=== PATIENT | female | born 1995 | race Caucasian/White ===

== ENCOUNTER 2017-11-29 16:02 | Outpatient (CLI) | payer OTHER, MEDICAID ==
[~2017-11-29 16:02] MED LIST: TEST200V10
[2017-11-29 16:54] LABS: BASOPHILS % (AUTO) 0.3 % (0-1); EOSINOPHILS # (AUTO) 0.2 X10'3 (0-0.9); EOSINOPHILS % (AUTO) 3.5 % (0-6); HEMATOCRIT 43.8 % (35.0-45.0); LYMPHOCYTES # (AUTO) 1.6 X10'3 (1.1-4.8); LYMPHOCYTES % (AUTO) 28.5 % (21-51); MEAN CORPUSCULAR HEMOGLOBIN 31.1 PG (27.0-31.0); MEAN CORPUSCULAR HGB CONC 34.3 % (33.0-36.5); MEAN CORPUSCULAR VOLUME 90.7 FL (78-98); MEAN PLATELET VOLUME 7.6 FL (7.4-10.4); MONOCYTES # (AUTO) 0.7 X10'3 (0-0.9); MONOCYTES % (AUTO) 12.5 % (2-12); NEUTROPHILS # (AUTO) 3.1 X10'3 (1.8-7.7); NEUTROPHILS % (AUTO) 55.2 % (42-75); PLATELET COUNT 262 X10'3 (140-440); RED BLOOD COUNT 4.83 X10'6 (4.20-5.60); RED CELL DISTRIBUTION WIDTH 13.4 % (11.5-14.5); WHITE BLOOD COUNT 5.6 X10'3 (4.5-11.0)
[2017-12-01 09:24] LABS: ESTRADIOL 72.5 pg/mL (.)
== END 2017-11-29 23:59 | disposition home or self-care (01) ==
LOC: LAB 16:02
PROVIDERS: ATTEND Internal Medicine
DX: F64.9 Gender identity disorder, unspecified (principal)
CPT/HCPCS: 36415; 82670; 84402; 84403; 85025

== ENCOUNTER 2018-06-13 11:55 | Outpatient (CLI) | payer OTHER, MEDICAID ==
[2018-06-13 12:48] LABS: BASOPHILS % (AUTO) 0.3 % (0-1); EOSINOPHILS # (AUTO) 0.1 X10'3 (0-0.9); EOSINOPHILS % (AUTO) 0.8 % (0-6); HEMATOCRIT 41.3 % (35.0-45.0); HEMOGLOBIN 14.7 g/dl (12.0-16.0); LYMPHOCYTES # (AUTO) 1.9 X10'3 (1.1-4.8); LYMPHOCYTES % (AUTO) 29.2 % (21-51); MEAN CORPUSCULAR HEMOGLOBIN 31.7 PG (27.0-31.0); MEAN CORPUSCULAR HGB CONC 35.7 % (33.0-36.5); MEAN PLATELET VOLUME 7.9 FL (7.4-10.4); MONOCYTES # (AUTO) 0.6 X10'3 (0-0.9); MONOCYTES % (AUTO) 9.4 % (2-12); NEUTROPHILS # (AUTO) 3.9 X10'3 (1.8-7.7); NEUTROPHILS % (AUTO) 60.3 % (42-75); PLATELET COUNT 308 X10'3 (140-440); RED BLOOD COUNT 4.65 X10'6 (4.20-5.60); RED CELL DISTRIBUTION WIDTH 11.3 % (11.5-14.5); WHITE BLOOD COUNT 6.5 X10'3 (4.5-11.0)
[2018-06-14 08:17] LABS: ESTRADIOL 15.7 pg/mL (.)
[2018-06-15 13:43] LABS: TESTOSTERONE, FREE, DIRECT 4.7 pg/mL (0.0-4.2)
== END 2018-06-13 23:59 | disposition home or self-care (01) ==
LOC: LAB 11:55
PROVIDERS: ATTEND Internal Medicine
DX: F64.9 Gender identity disorder, unspecified (principal); F17.200 Nicotine dependence, unspecified, uncomplicated
CPT/HCPCS: 36415; 82670; 84402; 84403; 85025

== ENCOUNTER 2018-08-08 09:59 | Outpatient (CLI) | payer OTHER, MEDICAID ==
[2018-08-08 10:32] LABS: BASOPHILS % (AUTO) 0.3 % (0-1); EOSINOPHILS # (AUTO) 0.1 X10'3 (0-0.9); EOSINOPHILS % (AUTO) 1.6 % (0-6); HEMATOCRIT 43.4 % (35.0-45.0); HEMOGLOBIN 14.8 g/dl (12.0-16.0); LYMPHOCYTES # (AUTO) 1.5 X10'3 (1.1-4.8); LYMPHOCYTES % (AUTO) 27.9 % (21-51); MEAN CORPUSCULAR HEMOGLOBIN 30.4 PG (27.0-31.0); MEAN CORPUSCULAR HGB CONC 34.1 % (33.0-36.5); MEAN CORPUSCULAR VOLUME 89.3 FL (78-98); MEAN PLATELET VOLUME 7.7 FL (7.4-10.4); MONOCYTES # (AUTO) 0.5 X10'3 (0-0.9); MONOCYTES % (AUTO) 9.2 % (2-12); NEUTROPHILS # (AUTO) 3.2 X10'3 (1.8-7.7); PLATELET COUNT 276 X10'3 (140-440); RED BLOOD COUNT 4.86 X10'6 (4.20-5.60); RED CELL DISTRIBUTION WIDTH 12.4 % (11.5-14.5); WHITE BLOOD COUNT 5.3 X10'3 (4.5-11.0)
[2018-08-08 11:06] LABS: ALANINE AMINOTRANSFERASE 37 U/L (12-78); ALBUMIN 4.1 G/DL (3.4-5.0); ALBUMIN/GLOBULIN RATIO 1.3 (1.1-1.5); ALKALINE PHOSPHATASE 102 IU/L (46-116); ANION GAP 8 (8-16); ASPARTATE AMINO TRANSFERASE 30 U/L (10-37); BILIRUBIN,TOTAL 0.5 MG/DL (0.1-1.0); BLOOD UREA NITROGEN 7 MG/DL (7-18); BUN/CREATININE RATIO 6.5 (6.6-38.0); CALCIUM 9.5 MG/DL (8.5-10.1); CHLORIDE 101 MMOL/L (99-107); CHOL/HDL RATIO 3.5 (0.00-4.99); CHOLESTEROL 159 MG/DL (0-200); CREATININE 1.08 MG/DL (0.40-0.90); GLUCOSE 94 MG/DL (70-104); HDL CHOLESTEROL 46 MG/DL (35-60); LDL CHOLESTEROL 102 MG/DL (50-100); POTASSIUM 4.4 MMOL/L (3.5-5.1); SODIUM 139 MMOL/L (135-145); TOTAL CARBON DIOXIDE 30.5 MMOL/L (24-32); TOTAL PROTEIN 7.2 G/DL (6.4-8.2); TRIGLYCERIDES 72 MG/DL (20-135); eGFR 63 ML/MIN
[2018-08-08 11:19] LABS: FERRITIN 48 NG/ML (8-252)
[2018-08-09 06:17] LABS: VITAMIN D, 25-HYDROXY 20.9 ng/mL (30.0-100.0)
[2018-08-09 09:30] LABS: THIIODOTHRONINE, FREE, SERUM 5.1 pg/mL (2.0-4.4)
== END 2018-08-08 23:59 | disposition home or self-care (01) ==
LOC: LAB 09:59
PROVIDERS: ATTEND Family Medicine
DX: G93.3 Postviral and related fatigue syndromes (principal); E78.49 Other hyperlipidemia; R94.6 Abnormal results of thyroid function studies; E83.10 Disorder of iron metabolism, unspecified; M85.80 Other specified disorders of bone density and structure, unspecified site; Z87.891 Personal history of nicotine dependence
CPT/HCPCS: 36415; 80053; 80061; 82306; 82728; 84439; 84443; 84481; 85025

== ENCOUNTER 2018-10-10 11:29 | Outpatient (CLI) | payer OTHER, MEDICAID ==
[2018-10-10 12:00] LABS: BASOPHILS % (AUTO) 0.2 % (0-1); EOSINOPHILS # (AUTO) 0.1 X10'3 (0-0.9); EOSINOPHILS % (AUTO) 1.4 % (0-6); HEMATOCRIT 47.6 % (35.0-45.0); HEMOGLOBIN 16.4 g/dl (12.0-16.0); LYMPHOCYTES # (AUTO) 1.6 X10'3 (1.1-4.8); LYMPHOCYTES % (AUTO) 24.1 % (21-51); MEAN CORPUSCULAR HEMOGLOBIN 30.8 PG (27.0-31.0); MEAN CORPUSCULAR HGB CONC 34.4 g/dL (33.0-36.5); MEAN CORPUSCULAR VOLUME 89.7 FL (78-98); MEAN PLATELET VOLUME 8.4 FL (7.4-10.4); MONOCYTES # (AUTO) 0.5 X10'3 (0-0.9); MONOCYTES % (AUTO) 7.3 % (2-12); NEUTROPHILS # (AUTO) 4.5 X10'3 (1.8-7.7); PLATELET COUNT 305 X10'3 (140-440); RED BLOOD COUNT 5.31 X10'6 (4.20-5.60); RED CELL DISTRIBUTION WIDTH 12.4 % (11.5-14.5); WHITE BLOOD COUNT 6.7 X10'3 (4.5-11.0)
[2018-10-11 08:15] LABS: ESTRADIOL 57.1 pg/mL (.)
== END 2018-10-10 23:59 | disposition home or self-care (01) ==
LOC: LAB 11:29
PROVIDERS: ATTEND Internal Medicine
DX: F64.9 Gender identity disorder, unspecified (principal); F17.200 Nicotine dependence, unspecified, uncomplicated
CPT/HCPCS: 36415; 82670; 84402; 84403; 85025

== ENCOUNTER 2019-02-23 12:41 | Emergency (ER) | payer OTHER, MEDICAID ==
[~2019-02-23] VITALS: Ht 175.3 cm; Wt 175.0 kg
[2019-02-23 13:18] LABS: BASOPHILS % (AUTO) 0.3 % (0-1); EOSINOPHILS # (AUTO) 0.1 X10'3 (0-0.9); HEMATOCRIT 41.9 % (35.0-45.0); HEMOGLOBIN 14.3 g/dl (12.0-16.0); LYMPHOCYTES # (AUTO) 1.5 X10'3 (1.1-4.8); MEAN CORPUSCULAR HEMOGLOBIN 30.4 PG (27.0-31.0); MEAN CORPUSCULAR HGB CONC 34.1 g/dL (33.0-36.5); MEAN CORPUSCULAR VOLUME 89.1 FL (78-98); MEAN PLATELET VOLUME 8.3 FL (7.4-10.4); MONOCYTES # (AUTO) 0.6 X10'3 (0-0.9); MONOCYTES % (AUTO) 8.6 % (2-12); NEUTROPHILS # (AUTO) 5.3 X10'3 (1.8-7.7); NEUTROPHILS % (AUTO) 70.1 % (42-75); PLATELET COUNT 287 X10'3 (140-440); RED CELL DISTRIBUTION WIDTH 12.6 % (11.5-14.5); WHITE BLOOD COUNT 7.6 X10'3 (4.5-11.0)
[2019-02-23] MEDS: normal saline 1000ML IV soln IVB ONE (13:20)
[2019-02-23 13:21] LABS: ALANINE AMINOTRANSFERASE 39 U/L (12-78); ALBUMIN 4.2 G/DL (3.4-5.0); ALBUMIN/GLOBULIN RATIO 1.2 (1.1-1.5); ALKALINE PHOSPHATASE 99 IU/L (46-116); ANION GAP 8 (8-16); ASPARTATE AMINO TRANSFERASE 26 U/L (10-37); BILIRUBIN,TOTAL 0.5 MG/DL (0.1-1.0); BLOOD UREA NITROGEN 11 MG/DL (7-18); BUN/CREATININE RATIO 10.2 (6.6-38.0); CALCIUM 9.3 MG/DL (8.5-10.1); CHLORIDE 102 MMOL/L (99-107); CREATININE 1.08 MG/DL (0.40-0.90); GLUCOSE 94 MG/DL (70-104); POTASSIUM 4.2 MMOL/L (3.5-5.1); SODIUM 138 MMOL/L (135-145); TOTAL CARBON DIOXIDE 28.2 MMOL/L (24-32); TOTAL PROTEIN 7.8 G/DL (6.4-8.2); eGFR 63 ML/MIN
[2019-02-23 13:30] LABS: ETHANOL < 0.010 GM/DL (0.0-0.010)
[2019-02-23 13:31] LABS: ACETAMINOPHEN < 2.0 UG/ML (10-30)
[2019-02-23 13:50] LABS: CLARITY,URINE SLIGHTLY CLOUDY (Clear); COLOR,URINE YELLOW (Yellow); GLUCOSE, URINE NEGATIVE (Neg); KETONES,URINE NEGATIVE (Neg); LEUKOCYTE ESTERASE ,URINE TRACE (Neg); NITRITES, URINE NEGATIVE (Neg); OCCULT BLOOD,URINE NEGATIVE (Neg); PROTEIN,URINE 30 mg/dl (Neg); UROBILINOGEN,URINE 0.2 E.U/dL (0.2-1.0)
[2019-02-23 13:51] LABS: URINE HCG NEGATIVE (NEG)
[2019-02-23 13:54] LABS: UA COLLECTION TYPE CLN CATCH MIDSTREAM
[2019-02-23 13:55] LABS: MUCUS STRANDS MODERATE /LPF (Neg); SQUAMOUS EPITHELIAL CELL,UR MODERATE /LPF (FEW)
[2019-02-23 13:57] LABS: BACTERIA,URINE 1+ /HPF (Neg)
[2019-02-23 13:58] LABS: RBC,URINE 0-2 /HPF (0-2); WBC,URINE 50-100 /HPF (0-4)
[2019-02-23 14:05] LABS: URINE AMPHETAMINE SCREEN NEGATIVE (Neg); URINE BARBITUATE SCREEN NEGATIVE (Neg); URINE BENZODIAZEPINES SCREEN POSITIVE (Neg); URINE CANNABINOID SCREEN NEGATIVE (Neg); URINE COCAINE SCREEN NEGATIVE (Neg); URINE METHADONE SCREEN NEGATIVE (Neg); URINE OPIATE SCREEN POSITIVE (Neg); URINE PHENCYCLIDINE SCREEN NEGATIVE (Neg)
[2019-02-23] MEDS: CefTRIAXone/D5W-Rocephin 1gm 50 ML IV ONE (14:09)
[2019-02-23] MEDS ORDERED: CEPH500C5 PO (14:31)
[2019-02-23 14:52] VITALS: BP 140/94
== END 2019-02-23 15:00 ==
LOC: ER 12:42
DX: T42.4X1A Poisoning by benzodiazepines, accidental (unintentional), initial encounter (principal); N39.0 Urinary tract infection, site not specified; R00.0 Tachycardia, unspecified; Y92.9 Unspecified place or not applicable
CPT/HCPCS: 36415; 80053; 80305; 80320; 80329; 81001; 81025; 84443; 85025; 93005; 96365; 99284; J0696; J7030

== ENCOUNTER 2019-06-06 13:02 | Outpatient (CLI) | payer OTHER, MEDICAID ==
[2019-06-06 14:52] LABS: BASOPHILS % (AUTO) 0.3 % (0-1); HEMOGLOBIN 15.6 g/dl (12.0-16.0); MEAN CORPUSCULAR HEMOGLOBIN 30.3 PG (27.0-31.0); MONOCYTES # (AUTO) 0.5 X10'3 (0-0.9); NEUTROPHILS # (AUTO) 6.1 X10'3 (1.8-7.7); RED BLOOD COUNT 5.15 X10'6 (4.20-5.60); WHITE BLOOD COUNT 7.6 X10'3 (4.5-11.0)
[2019-06-06 14:54] LABS: EOSINOPHILS % (AUTO) 0.3 % (0-6); HEMATOCRIT 45.4 % (35.0-45.0); LYMPHOCYTES % (AUTO) 13.7 % (21-51); MEAN CORPUSCULAR HGB CONC 34.4 g/dL (33.0-36.5); MEAN CORPUSCULAR VOLUME 88.3 FL (78-98); MONOCYTES % (AUTO) 6.2 % (2-12); NEUTROPHILS % (AUTO) 79.5 % (42-75); PLATELET COUNT 283 X10'3 (140-440); RED CELL DISTRIBUTION WIDTH 13.1 % (11.5-14.5)
[2019-06-06 15:09] LABS: ALANINE AMINOTRANSFERASE 33 U/L (12-78); ALBUMIN 4.4 G/DL (3.4-5.0); ALBUMIN/GLOBULIN RATIO 1.3 (1.1-1.5); ALKALINE PHOSPHATASE 115 IU/L (46-116); ANION GAP 6 (8-16); ASPARTATE AMINO TRANSFERASE 17 U/L (10-37); BILIRUBIN,TOTAL 0.5 MG/DL (0.1-1.0); BLOOD UREA NITROGEN 7 MG/DL (7-18); BUN/CREATININE RATIO 6.4 (6.6-38.0); CALCIUM 9.5 MG/DL (8.5-10.1); CHLORIDE 104 MMOL/L (99-107); CHOL/HDL RATIO 2.5 (0.00-4.99); CHOLESTEROL 145 MG/DL (0-200); GLUCOSE 102 MG/DL (70-104); HDL CHOLESTEROL 58 MG/DL (35-60); HEMOGLOBIN A1C 5.3 % (4.5-6.2); LDL CHOLESTEROL 83 MG/DL (50-100); POTASSIUM 4.6 MMOL/L (3.5-5.1); SODIUM 141 MMOL/L (135-145); TOTAL PROTEIN 7.9 G/DL (6.4-8.2); TRIGLYCERIDES 47 MG/DL (20-135); eGFR 62 ML/MIN
[2019-06-08 07:10] LABS: VITAMIN D, 25-HYDROXY 42.6 ng/mL (30.0-100.0)
[2019-06-08 08:12] LABS: PROLACTIN 34.7 ng/mL (4.8-23.3); SEX HORM BINDING GLOB, SERUM 24.9 nmol/L (24.6-122.0); TRIIODOTHYRONINE (T3) 141 ng/dL (71-180)
[2019-06-10 05:13] LABS: TESTOSTERONE, FREE, DIRECT 7.1 pg/mL (0.0-4.2)
== END 2019-06-06 23:59 | disposition home or self-care (01) ==
LOC: LAB 13:02
PROVIDERS: ATTEND Physician Assistant
DX: Z01.812 Encounter for preprocedural laboratory examination (principal); F28 Other psychotic disorder not due to a substance or known physiological condition
CPT/HCPCS: 36415; 80053; 80061; 82306; 82607; 82746; 83036; 84146; 84270; 84402; 84403; 84439; 84443; 84480; 85025

== ENCOUNTER 2019-08-05 18:44 | Emergency (ER) | payer OTHER, MEDICAID ==
[~2019-08-05] VITALS: Ht 175.3 cm; Wt 71.2 kg
[2019-08-05] MEDS ORDERED: acetaminophen 325mg tablet PO ONE (20:25)
[2019-08-05] MEDS ORDERED: normal saline 1000ML IV soln IV ONE (20:50)
[2019-08-05 20:51] LABS: CLARITY,URINE CLEAR (Clear); COLOR,URINE YELLOW (Yellow); GLUCOSE, URINE NEGATIVE (Neg); KETONES,URINE NEGATIVE (Neg); LEUKOCYTE ESTERASE ,URINE TRACE (Neg); NITRITES, URINE NEGATIVE (Neg); OCCULT BLOOD,URINE NEGATIVE (Neg); PROTEIN,URINE NEGATIVE (Neg); UROBILINOGEN,URINE 0.2 E.U/dL (0.2-1.0)
[2019-08-05 20:53] LABS: UA COLLECTION TYPE VOIDED
--- NOTE | 2019-08-05 20:55 | NUR ---
REPORT TO LAKISHA BALES. PATIENT TRANSFERED TO ROOM 8 WHILE I WAS IN ANOTHER ROOM.
[2019-08-05 21:16] LABS: BACTERIA,URINE FEW /HPF (Neg); MUCUS STRANDS NONE SEEN /LPF (Neg); RBC,URINE 0-2 /HPF (0-2); SQUAMOUS EPITHELIAL CELL,UR FEW /LPF (FEW); WBC,URINE 0-4 /HPF (0-4)
[2019-08-05 21:45] LABS: BASOPHILS % (AUTO) 0.1 % (0-1); EOSINOPHILS # (AUTO) 0.1 X10'3 (0-0.9); EOSINOPHILS % (AUTO) 0.6 % (0-6); HEMATOCRIT 41.7 % (35.0-45.0); HEMOGLOBIN 14.4 g/dl (12.0-16.0); LYMPHOCYTES # (AUTO) 1.7 X10'3 (1.1-4.8); LYMPHOCYTES % (AUTO) 10.4 % (21-51); MEAN CORPUSCULAR HEMOGLOBIN 30.8 PG (27.0-31.0); MEAN CORPUSCULAR HGB CONC 34.4 g/dL (33.0-36.5); MEAN CORPUSCULAR VOLUME 89.6 FL (78-98); MEAN PLATELET VOLUME 9.3 FL (7.4-10.4); MONOCYTES # (AUTO) 1.3 X10'3 (0-0.9); MONOCYTES % (AUTO) 7.7 % (2-12); NEUTROPHILS # (AUTO) 13.6 X10'3 (1.8-7.7); NEUTROPHILS % (AUTO) 81.2 % (42-75); PLATELET COUNT 258 X10'3 (140-440); RED BLOOD COUNT 4.65 X10'6 (4.20-5.60); RED CELL DISTRIBUTION WIDTH 13.2 % (11.5-14.5); WHITE BLOOD COUNT 16.8 X10'3 (4.5-11.0)
[2019-08-05 21:50] LABS: ALANINE AMINOTRANSFERASE 20 U/L (12-78); ALBUMIN 3.7 G/DL (3.4-5.0); ALBUMIN/GLOBULIN RATIO 1.2 (1.1-1.5); ALKALINE PHOSPHATASE 104 IU/L (46-116); ANION GAP 8 (8-16); ASPARTATE AMINO TRANSFERASE 17 U/L (10-37); BILIRUBIN,TOTAL 0.4 MG/DL (0.1-1.0); BLOOD UREA NITROGEN 8 MG/DL (7-18); BUN/CREATININE RATIO 7.2 (6.6-38.0); CALCIUM 8.5 MG/DL (8.5-10.1); CHLORIDE 104 MMOL/L (99-107); CREATININE 1.11 MG/DL (0.40-0.90); GLUCOSE 80 MG/DL (70-104); POTASSIUM 3.7 MMOL/L (3.5-5.1); SODIUM 140 MMOL/L (135-145); TOTAL CARBON DIOXIDE 28.2 MMOL/L (24-32); TOTAL PROTEIN 6.8 G/DL (6.4-8.2); eGFR 61 ML/MIN
[2019-08-05] MEDS ORDERED: CefTRIAXone 2gm/D5W 50ml 50 ML IV ONE (22:00)
[2019-08-05 22:36] VITALS: BP 140/86
[2019-08-05] MEDS ORDERED: normal saline 1000ml 1,000 ML IV ONE (22:40)
[2019-08-05 23:23] LABS: URINE HCG NEGATIVE (NEG)
[2019-08-05] MEDS ORDERED: LEVO750T21 PO (23:23)
[2019-08-05 23:33] LABS: URINE AMPHETAMINE SCREEN NEGATIVE (Neg); URINE BARBITUATE SCREEN NEGATIVE (Neg); URINE BENZODIAZEPINES SCREEN POSITIVE (Neg); URINE CANNABINOID SCREEN NEGATIVE (Neg); URINE COCAINE SCREEN NEGATIVE (Neg); URINE METHADONE SCREEN NEGATIVE (Neg); URINE OPIATE SCREEN NEGATIVE (Neg); URINE PHENCYCLIDINE SCREEN NEGATIVE (Neg)
[2019-08-05] MEDS ORDERED: IBUP-1984 PO (23:40)
== END 2019-08-06 00:01 | disposition home or self-care (01) ==
LOC: ER 18:45
DX: N39.0 Urinary tract infection, site not specified (principal); K21.9 Gastro-esophageal reflux disease without esophagitis; F25.9 Schizoaffective disorder, unspecified; F41.9 Anxiety disorder, unspecified; F32.9 Major depressive disorder, single episode, unspecified; Z98.890 Other specified postprocedural states; Z79.899 Other long term (current) drug therapy
CPT/HCPCS: 36415; 71045; 80053; 80305; 81001; 81025; 83605; 84145; 85025; 87040; 87077; 87088; 87186; 93005; 96365; 99284; J0696; J7030

== ENCOUNTER 2019-10-30 11:08 | Outpatient (CLI) | payer OTHER, MEDICAID ==
[2019-10-30 12:55] LABS: BASOPHILS % (AUTO) 0.3 % (0-1); EOSINOPHILS # (AUTO) 0.1 X10'3 (0-0.9); EOSINOPHILS % (AUTO) 0.7 % (0-6); HEMATOCRIT 44.2 % (35.0-45.0); HEMOGLOBIN 15.1 g/dl (12.0-16.0); LYMPHOCYTES # (AUTO) 1.7 X10'3 (1.1-4.8); LYMPHOCYTES % (AUTO) 24.7 % (21-51); MEAN CORPUSCULAR HGB CONC 34.1 g/dL (33.0-36.5); MEAN CORPUSCULAR VOLUME 87.9 FL (78-98); MEAN PLATELET VOLUME 8.4 FL (7.4-10.4); MONOCYTES # (AUTO) 0.4 X10'3 (0-0.9); MONOCYTES % (AUTO) 6.1 % (2-12); NEUTROPHILS # (AUTO) 4.7 X10'3 (1.8-7.7); NEUTROPHILS % (AUTO) 68.2 % (42-75); PLATELET COUNT 302 X10'3 (140-440); RED BLOOD COUNT 5.03 X10'6 (4.20-5.60); RED CELL DISTRIBUTION WIDTH 13.3 % (11.5-14.5); WHITE BLOOD COUNT 6.9 X10'3 (4.5-11.0)
[2019-10-31 09:13] LABS: ESTRADIOL 12.8 pg/mL (.)
== END 2019-10-30 23:59 | disposition home or self-care (01) ==
LOC: LAB 11:08
PROVIDERS: ATTEND Internal Medicine
DX: F64.9 Gender identity disorder, unspecified (principal)
CPT/HCPCS: 36415; 82670; 84402; 84403; 85025

== ENCOUNTER → 2020-03-07 | Outpatient (CLI) | payer BC, MEDICAID ==
[2020-03-07 11:02] LABS: BASOPHILS % (AUTO) 0.4 % (0-1); EOSINOPHILS # (AUTO) 0.2 X10'3 (0-0.9); EOSINOPHILS % (AUTO) 1.9 % (0-6); HEMATOCRIT 44.7 % (35.0-45.0); HEMOGLOBIN 15.1 g/dl (12.0-16.0); LYMPHOCYTES # (AUTO) 1.7 X10'3 (1.1-4.8); LYMPHOCYTES % (AUTO) 20.7 % (21-51); MEAN CORPUSCULAR HEMOGLOBIN 29.7 PG (27.0-31.0); MEAN CORPUSCULAR HGB CONC 33.9 g/dL (33.0-36.5); MEAN CORPUSCULAR VOLUME 87.6 FL (78-98); MEAN PLATELET VOLUME 8.8 FL (7.4-10.4); MONOCYTES # (AUTO) 0.6 X10'3 (0-0.9); MONOCYTES % (AUTO) 7.5 % (2-12); NEUTROPHILS # (AUTO) 5.8 X10'3 (1.8-7.7); NEUTROPHILS % (AUTO) 69.5 % (42-75); PLATELET COUNT 307 X10'3 (140-440); RED CELL DISTRIBUTION WIDTH 12.9 % (11.5-14.5); WHITE BLOOD COUNT 8.3 X10'3 (4.5-11.0)
[2020-03-08 13:16] LABS: ESTRADIOL 25.6 pg/mL (.)
== END | disposition home or self-care (01) ==
LOC: LAB 10:28
PROVIDERS: ATTEND Internal Medicine
DX: F64.9 Gender identity disorder, unspecified (principal)
CPT/HCPCS: 36415; 82670; 84410; 85025

== ENCOUNTER 2020-04-28 21:53 | Emergency (ER) | payer BC, MEDICAID ==
[~2020-04-28] VITALS: Ht 175.3 cm; Wt 85.5 kg
[2020-04-28] MEDS ORDERED: normal saline 1000ML IV soln IVB ONE (22:10)
[2020-04-28 22:33] LABS: BASOPHILS % (AUTO) 0.5 % (0-1); EOSINOPHILS # (AUTO) 0.2 X10'3 (0-0.9); EOSINOPHILS % (AUTO) 2.7 % (0-6); HEMATOCRIT 43.9 % (42.0-52.0); HEMOGLOBIN 14.9 g/dl (14.0-17.9); LYMPHOCYTES # (AUTO) 1.8 X10'3 (1.1-4.8); LYMPHOCYTES % (AUTO) 20.3 % (21-51); MEAN CORPUSCULAR VOLUME 88.2 FL (78-98); MEAN PLATELET VOLUME 8.4 FL (7.4-10.4); MONOCYTES # (AUTO) 0.6 X10'3 (0-0.9); MONOCYTES % (AUTO) 7.1 % (2-12); NEUTROPHILS # (AUTO) 6.2 X10'3 (1.8-7.7); NEUTROPHILS % (AUTO) 69.4 % (42-75); PLATELET COUNT 270 X10'3 (140-440); RED BLOOD COUNT 4.97 X10'6 (4.70-6.10); RED CELL DISTRIBUTION WIDTH 12.8 % (11.5-14.5); WHITE BLOOD COUNT 8.9 X10'3 (4.5-11.0)
--- NOTE | 2020-04-28 22:43 | NUR ---
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 TO CONFIRM THAT IT WAS NOT A SUICIDE ATTEMPT, TAKE SALICYLATES AND ACETAMINOPHEN LEVELS. OBSERVE FOR 2-3 MORE HOURS.
[2020-04-28 22:48] LABS: ALANINE AMINOTRANSFERASE 34 U/L (12-78); ALBUMIN 3.9 G/DL (3.4-5.0); ALBUMIN/GLOBULIN RATIO 1.1 (1.1-1.5); ALKALINE PHOSPHATASE 86 IU/L (46-116); ANION GAP 7 (8-16); ASPARTATE AMINO TRANSFERASE 23 U/L (10-37); BILIRUBIN,TOTAL 0.4 MG/DL (0.1-1.0); BLOOD UREA NITROGEN 11 MG/DL (7-18); BUN/CREATININE RATIO 9.3 (5.4-32.0); CALCIUM 8.6 MG/DL (8.5-10.1); CHLORIDE 101 MMOL/L (99-107); CREATININE 1.18 MG/DL (0.60-1.10); ETHANOL < 0.010 GM/DL (0.0-0.010); GLUCOSE 96 MG/DL (70-104); SODIUM 138 MMOL/L (135-145); TOTAL CARBON DIOXIDE 30.1 MMOL/L (24-32); TOTAL PROTEIN 7.3 G/DL (6.4-8.2); eGFR 76 ML/MIN
[2020-04-28 22:49] LABS: ACETAMINOPHEN < 2.0 UG/ML (10-30)
[2020-04-29 03:11] VITALS: BP 118/50
== END 2020-04-29 03:13 | disposition home or self-care (01) ==
LOC: EDSEX 21:53 → ER 21:53
DX: T42.4X1A Poisoning by benzodiazepines, accidental (unintentional), initial encounter (principal); I10 Essential (primary) hypertension; K21.9 Gastro-esophageal reflux disease without esophagitis; F41.9 Anxiety disorder, unspecified; F32.9 Major depressive disorder, single episode, unspecified; Z98.890 Other specified postprocedural states; Z79.899 Other long term (current) drug therapy; Y92.89 Other specified places as the place of occurrence of the external cause
CPT/HCPCS: 36415; 71045; 80053; 80320; 80329; 82948; 85025; 93005; 96360; 96361; 99285; J7030

== ENCOUNTER 2021-07-25 01:41 | Emergency (ER) | payer MEDICAID ==
[~2021-07-25] VITALS: Ht 185.4 cm; Wt 90.9 kg
[~2021-07-25 01:41] MED LIST changes: -TEST200V10; +TEST200V33
[2021-07-25] MEDS ORDERED: MIDAZolam 5mg/ml 2ml vial IV PRN (01:50)
[2021-07-25] MEDS ORDERED: normal saline 1000ml 1,000 ML IV ONE ×3 (01:50→03:50)
[2021-07-25 02:33] LABS: BASOPHILS # (AUTO) 0.1 X10'3 (0-0.2); BASOPHILS % (AUTO) 0.3 % (0-1); EOSINOPHILS % (AUTO) 0 % (0-6); HEMATOCRIT 41.6 % (42.0-52.0); HEMOGLOBIN 14.2 g/dl (14.0-17.9); LYMPHOCYTES # (AUTO) 1.4 X10'3 (1.1-4.8); LYMPHOCYTES % (AUTO) 6.7 % (21-51); MEAN CORPUSCULAR HEMOGLOBIN 29.4 PG (27.0-31.0); MEAN CORPUSCULAR VOLUME 86.2 FL (78-98); MEAN PLATELET VOLUME 8.6 FL (7.4-10.4); MONOCYTES # (AUTO) 1.1 X10'3 (0-0.9); MONOCYTES % (AUTO) 5.6 % (2-12); NEUTROPHILS # (AUTO) 17.8 X10'3 (1.8-7.7); NEUTROPHILS % (AUTO) 87.4 % (42-75); PLATELET COUNT 441 X10'3 (140-440); RED BLOOD COUNT 4.83 X10'6 (4.70-6.10); RED CELL DISTRIBUTION WIDTH 12.5 % (11.5-14.5); WHITE BLOOD COUNT 20.4 X10'3 (4.5-11.0)
[2021-07-25 02:40] LABS: ALANINE AMINOTRANSFERASE 33 U/L (12-78); ALBUMIN 3.7 G/DL (3.4-5.0); ALBUMIN/GLOBULIN RATIO 0.8 (1.1-1.5); ALKALINE PHOSPHATASE 97 IU/L (46-116); ANION GAP 21 (8-16); ASPARTATE AMINO TRANSFERASE 44 U/L (10-37); BILIRUBIN,TOTAL 0.9 MG/DL (0.1-1.0); BLOOD UREA NITROGEN 13 MG/DL (7-18); BUN/CREATININE RATIO 9.2 (5.4-32.0); CALCIUM 9.6 MG/DL (8.5-10.1); CHLORIDE 99 MMOL/L (99-107); CREATININE 1.42 MG/DL (0.60-1.10); GLUCOSE 150 MG/DL (70-104); POTASSIUM 3.8 MMOL/L (3.5-5.1); SODIUM 140 MMOL/L (135-145); TOTAL CARBON DIOXIDE 20.5 MMOL/L (24-32); TOTAL PROTEIN 8.3 G/DL (6.4-8.2); eGFR 61 ML/MIN
[2021-07-25 03:07] LABS: MAGNESIUM 2.4 MG/DL (1.5-2.4)
[2021-07-25] MEDS ORDERED: iohexol 300mg/ml 100ml inj. ONE (03:11)
[2021-07-25 03:12] LABS: PLATELET ESTIMATE NORMAL; TOTAL CELLS COUNTED 100
[2021-07-25 06:18] VITALS: BP 122/74
== END 2021-07-25 06:19 | disposition home or self-care (01) ==
LOC: ER 01:41
DX: R45.1 Restlessness and agitation (principal); D72.829 Elevated white blood cell count, unspecified; R00.0 Tachycardia, unspecified; R10.84 Generalized abdominal pain; I10 Essential (primary) hypertension; K21.9 Gastro-esophageal reflux disease without esophagitis; F41.9 Anxiety disorder, unspecified; F32.9 Major depressive disorder, single episode, unspecified; Z98.890 Other specified postprocedural states
CPT/HCPCS: 36415; 71045; 74177; 80053; 83735; 84443; 85007; 85025; 93005; 96361; 96374; 99285; J2250; J7030; Q9967

== ENCOUNTER 2021-08-22 03:43 | Emergency (ER) | payer MEDICAID ==
[~2021-08-22] VITALS: Ht 175.3 cm; Wt 84.1 kg
[2021-08-22 04:00] LABS: BASOPHILS % (AUTO) 0.6 % (0-1); EOSINOPHILS # (AUTO) 0.1 X10'3 (0-0.9); EOSINOPHILS % (AUTO) 2.5 % (0-6); HEMATOCRIT 41.9 % (42.0-52.0); LYMPHOCYTES # (AUTO) 1.3 X10'3 (1.1-4.8); LYMPHOCYTES % (AUTO) 22.1 % (21-51); MEAN CORPUSCULAR HEMOGLOBIN 30.6 PG (27.0-31.0); MEAN CORPUSCULAR HGB CONC 33.4 g/dL (33.0-36.5); MEAN CORPUSCULAR VOLUME 91.5 FL (78-98); MEAN PLATELET VOLUME 7.4 FL (7.4-10.4); MONOCYTES # (AUTO) 0.9 X10'3 (0-0.9); MONOCYTES % (AUTO) 15.5 % (2-12); NEUTROPHILS # (AUTO) 3.5 X10'3 (1.8-7.7); NEUTROPHILS % (AUTO) 59.3 % (42-75); PLATELET COUNT 386 X10'3 (140-440); RED BLOOD COUNT 4.58 X10'6 (4.70-6.10); RED CELL DISTRIBUTION WIDTH 15.7 % (11.5-14.5); WHITE BLOOD COUNT 5.9 X10'3 (4.5-11.0)
--- NOTE | 2021-08-22 04:00 | NUR ---
PT ROOMED IN BED 13. PT COMPLIANT. HAS PUT ON GREEN SCRUBS.
[2021-08-22 04:15] LABS: ALANINE AMINOTRANSFERASE 47 U/L (12-78); ALBUMIN 3.9 G/DL (3.4-5.0); ALBUMIN/GLOBULIN RATIO 1.1 (1.1-1.5); ALKALINE PHOSPHATASE 82 IU/L (46-116); ANION GAP 11 (8-16); ASPARTATE AMINO TRANSFERASE 39 U/L (10-37); BILIRUBIN,TOTAL 0.4 MG/DL (0.1-1.0); BLOOD UREA NITROGEN 10 MG/DL (7-18); BUN/CREATININE RATIO 11.5 (5.4-32.0); CALCIUM 9.3 MG/DL (8.5-10.1); CHLORIDE 102 MMOL/L (99-107); CREATININE 0.87 MG/DL (0.60-1.10); ETHANOL < 0.010 GM/DL (0.0-0.010); GLUCOSE 110 MG/DL (70-104); SODIUM 145 MMOL/L (135-145); TOTAL CARBON DIOXIDE 32.5 MMOL/L (24-32); TOTAL PROTEIN 7.4 G/DL (6.4-8.2); eGFR > 90 ML/MIN
[2021-08-22 04:16] LABS: POTASSIUM 3.7 MMOL/L (3.5-5.1)
[2021-08-22 04:43] LABS: TOTAL CELLS COUNTED 100
[2021-08-22 04:46] LABS: PLATELET ESTIMATE NORMAL
[2021-08-22 04:47] LABS: URINE AMPHETAMINE SCREEN POSITIVE (Neg); URINE BARBITUATE SCREEN NEGATIVE (Neg); URINE BENZODIAZEPINES SCREEN NEGATIVE (Neg); URINE CANNABINOID SCREEN POSITIVE (Neg); URINE COCAINE SCREEN NEGATIVE (Neg); URINE METHADONE SCREEN POSITIVE (Neg); URINE OPIATE SCREEN NEGATIVE (Neg); URINE PHENCYCLIDINE SCREEN NEGATIVE (Neg)
[2021-08-22] MEDS ORDERED: OLANZapine 2.5MG tablet PO STA (05:07)
--- NOTE | 2021-08-22 05:07 | NUR ---
PT PROVIDED URINE SAMPLE AND IS NOW BACK IN HIS ROOM. HE IS LYING DOWN ON HIS GURNEY TRYING TO SLEEP.
[2021-08-22] MEDS ORDERED: LORazepam 1 MG tablet PO ONE (05:20)
--- NOTE | 2021-08-22 05:30 | NUR ---
PACKET FAXED TO [facility]
--- NOTE | 2021-08-22 05:33 | NUR ---
PT REPORTS HALLUCINATING. PT STARTED YELLING AT STAFF. AND THEN STARTED LAUGHING AND SAYING THINGS THAT DONT MAKE SENSE. TALKS ABOUT SEEING AN EYE THAT FOLLOWS HIM. MD HAS BEEN NOTIFIED. PT HAS BEEN MEDICATED. PT REPORTED TO ME THAT HE LIKES TO TAKE ACID "BECAUSE THE TRIPS CALMING".
--- NOTE | 2021-08-22 06:50 | NUR ---
Patient ambulatory from Main ED with [facility] to ED OF bed 22. Patient in no distress. Continue to monitor.
[2021-08-22 07:01] VITALS: BP 140/70
--- NOTE | 2021-08-22 08:42 | NUR ---
Patient sleeping. Breakfast tray at bed side. No distress observed. Continue to monitor.
--- NOTE | 2021-08-22 09:19 | NUR ---
Patient eating breakfast. No distress observed. Continue to monitor.
--- NOTE | 2021-08-22 09:41 | NUR ---
RN spoke to patient about his medication. Patient states he only takes IM testoterone and no other medications. Patient hasn't been taking his Buspar and doesn't want to. Patient states he is frustrated with taking medication. Continue to monitor.
[2021-08-22] MEDS ORDERED: methadone 10mg tablet PO SCH (11:25)
--- NOTE | 2021-08-22 11:45 | NUR ---
Iza [facility], evaluating patient. Patient got very agitated and screaming. Patient threatening to kill tech. [facility] discharging patient.
== END 2021-08-22 12:06 | disposition home or self-care (01) ==
LOC: ER 03:43
DX: F23 Brief psychotic disorder (principal); Z20.822 Contact with and (suspected) exposure to COVID-19; F12.10 Cannabis abuse, uncomplicated; F15.10 Other stimulant abuse, uncomplicated; I10 Essential (primary) hypertension; K21.9 Gastro-esophageal reflux disease without esophagitis; F41.9 Anxiety disorder, unspecified; F32.9 Major depressive disorder, single episode, unspecified; F19.90 Other psychoactive substance use, unspecified, uncomplicated; Z98.890 Other specified postprocedural states
CPT/HCPCS: 36415; 80053; 80305; 80320; 85007; 85025; 87635; 99285; C9803

== ENCOUNTER 2021-08-28 20:57 | Emergency (ER) | payer MEDICAID ==
[~2021-08-28] VITALS: Ht 175.3 cm; Wt 77.2 kg
[2021-08-28] MEDS ORDERED: ondansetron 4mg rapidly disintigrating tab PO ONE (23:00)
--- NOTE | 2021-08-28 23:04 | NUR ---
PT SEEN AT [facility] EARLIER TODAY
--- NOTE | 2021-08-28 23:12 | NUR ---
PT STATES HAS MANY PLANS TO END LIFE. PT STATES CURRENT PLAN IS TO "SHOOT HIMSELF". PT STATES "i DONT WANT TO LIVE LIKE THIS ANYMORE."
[2021-08-28 23:45] LABS: BASOPHILS % (AUTO) 0.2 % (0-1); EOSINOPHILS % (AUTO) 0 % (0-6); HEMATOCRIT 44.5 % (42.0-52.0); HEMOGLOBIN 15.2 g/dl (14.0-17.9); LYMPHOCYTES # (AUTO) 0.7 X10'3 (1.1-4.8); LYMPHOCYTES % (AUTO) 5.7 % (21-51); MEAN CORPUSCULAR HEMOGLOBIN 31.1 PG (27.0-31.0); MEAN CORPUSCULAR HGB CONC 34.2 g/dL (33.0-36.5); MEAN CORPUSCULAR VOLUME 90.7 FL (78-98); MEAN PLATELET VOLUME 8.5 FL (7.4-10.4); MONOCYTES # (AUTO) 0.3 X10'3 (0-0.9); MONOCYTES % (AUTO) 2.6 % (2-12); NEUTROPHILS # (AUTO) 11.7 X10'3 (1.8-7.7); NEUTROPHILS % (AUTO) 91.5 % (42-75); PLATELET COUNT 360 X10'3 (140-440); RED CELL DISTRIBUTION WIDTH 15.5 % (11.5-14.5); WHITE BLOOD COUNT 12.8 X10'3 (4.5-11.0)
[2021-08-28 23:59] LABS: ALANINE AMINOTRANSFERASE 33 U/L (12-78); ALBUMIN 4.1 G/DL (3.4-5.0); ALBUMIN/GLOBULIN RATIO 1.1 (1.1-1.5); ALKALINE PHOSPHATASE 91 IU/L (46-116); ANION GAP 10 (8-16); ASPARTATE AMINO TRANSFERASE 18 U/L (10-37); BILIRUBIN,TOTAL 0.7 MG/DL (0.1-1.0); BLOOD UREA NITROGEN 11 MG/DL (7-18); BUN/CREATININE RATIO 11.6 (5.4-32.0); CALCIUM 9.7 MG/DL (8.5-10.1); CHLORIDE 100 MMOL/L (99-107); CREATININE 0.95 MG/DL (0.60-1.10); ETHANOL < 0.010 GM/DL (0.0-0.010); GLUCOSE 138 MG/DL (70-104); POTASSIUM 4.2 MMOL/L (3.5-5.1); SODIUM 141 MMOL/L (135-145); TOTAL CARBON DIOXIDE 30.9 MMOL/L (24-32); TOTAL PROTEIN 7.7 G/DL (6.4-8.2); eGFR > 90 ML/MIN
--- NOTE | 2021-08-29 00:17 | NUR ---
PT MOVED TO OVERFLOW WITH TECH
--- NOTE | 2021-08-29 00:31 | NUR ---
Pt brought over from main ER at 0020, pt was ambulatory, pt continues to have vomiting despite zofran that was given.
--- NOTE | 2021-08-29 00:46 | NUR ---
Packet faxed to [facility] at this time.
[2021-08-29 00:50] LABS: URINE AMPHETAMINE SCREEN NEGATIVE (Neg); URINE BARBITUATE SCREEN NEGATIVE (Neg); URINE BENZODIAZEPINES SCREEN NEGATIVE (Neg); URINE CANNABINOID SCREEN POSITIVE (Neg); URINE COCAINE SCREEN NEGATIVE (Neg); URINE METHADONE SCREEN NEGATIVE (Neg); URINE OPIATE SCREEN NEGATIVE (Neg); URINE PHENCYCLIDINE SCREEN NEGATIVE (Neg)
--- NOTE | 2021-08-29 01:29 | NUR ---
Pt lying on stomach asleep at this time, no signs of distress, no further bouts of vomiting.
--- NOTE | 2021-08-29 03:19 | NUR ---
Pt sleeping at this time, no signs of distress, did have one more episode of vomiting.
--- NOTE | 2021-08-29 05:08 | NUR ---
Pt awake at this time, requested linen change due to getting vomit on the bed. No other complaints, vitals being taken at this time.
--- NOTE | 2021-08-29 06:30 | NUR ---
Received pt. sleeping in bed, rr even and unlabored.
--- NOTE | 2021-08-29 07:05 | NUR ---
Pt. sitting up in bed at this time, c/o nausea, headache, and exhibiting tremors in bilateral upper extremities. He requests Zofran and reports that this helped him last night. Pt. reports a history of alcohol use, but denies any previous withdrawal s/s. He also reports recent opioid use within the last 24-48 hours. Pt. was evaluated by Dr. Dominguez who ordered PRN Zofran as Suboxone would precipitate withdrawal s/s at this time. Will continue to monitor.
[2021-08-29] MEDS: ondansetron 4mg rapidly disintigrating tab PO PRN ×2 (07:28→13:19)
--- NOTE | 2021-08-29 08:36 | NUR ---
Pt. continues to sleep restlessly at this time, no s/s of distress noted. Medical clearance and toxicology screen faxed to [facility] per request.
--- NOTE | 2021-08-29 09:26 | NUR ---
Pt. awake and sitting up in bed eating breakfast at this time. 1:1 completed at bedside. Pt. continues to report S/I with a plan to slit his neck, hang himself, or jump from a bridge. He states, "Anyway I can do it. I'm just tired of going through this, I'm homeless!" Pt. also reports command A/LENNON and visual H/A. He is observed to be talking aloud to himself at intervals. Pt. also reports what appear to be paranoid delusions that the police will kill him if he leaves the hospital, he was reassured by this underwriter of his safety on the unit. Pt. presents as restless and slightly agitated, he insists that he needs Methadone and has been attending the [facility] (last attended 2 days ago). He is able to be redirected and this underwriter will attempt to call the [facility] to verify pt's dose. Pt. reports he has not been taking his ordered Testosterone Cypionate or any other medications for two years because he is currently homeless. He reports that he is currently on his menses, underwear and pads provided.
--- NOTE | 2021-08-29 09:48 | NUR ---
Spoke with nurseAnastasiia at [facility] ([phone]). Per clinic, pt. has been a no-show for recent scheduled appointments. His usual dose of Methadone is 72mg, however r/t no-show pt. was re-started on a lower dose of 30mg on 08/26/21. The doctor's plan was to increase his dosage by 10mg each day so by Wednesday he would be back at his usual dose of 72mg, however pt. has again been a no-show for the rest of this week. Per Anastasiia, if pt. had come back to the clinic today, he would have again been given a 30mg of Methadone. Requested clinic fax this information to [facility] and they will do their best to do this. Will endorse this information to LO AMADO.
--- NOTE | 2021-08-29 10:35 | NUR ---
Pt. continues to sleep at this time, laying on his left side, rr even and unlabored.
--- NOTE | 2021-08-29 10:42 | NUR ---
Per Dr. Dominguez, pt. will be ordered 30mg of Methadone daily while at the hospital. We will not taper him up to his regular 72mg dose (see previous not regarding [facility]) at this time.
[2021-08-29] MEDS: methadone 10mg tablet PO SCH (10:50)
[2021-08-29] MEDS ORDERED: OLANZapine 2.5MG tablet PO ONE (12:15)
--- NOTE | 2021-08-29 12:15 | NUR ---
Pt's restlessness and irritability began to escalate and he was unable to be verbally redirected. Pt. began yelling out "Shut the fuck up!" to A/LENNON. When questioned by this race and sports book writer pt. reported ongoing command A/LENNON and negative thoughts. Pt. became agitated towards this race and sports book writer and began using frequent profanities and elevated voice, boundaries were set. Pt's statements and behavior were endorsed to Dr. Dominguez who gave orders for Zyprexa 5mg PO X1. Pt. is talking with [facility] at this time, will continue to monitor.
--- NOTE | 2021-08-29 12:48 | NUR ---
Pt. up to use the BR at this time, he continues to make delusional statements such as, "My mom is , she's a spirit, she's always attached to me. Why are you laughing?! I closed my eyes and you were laughing." Pt. is also observed to be whispering alound to himself responding to internal stimuli. He returns to be covering his head with blankets, will continue to monitor.
--- NOTE | 2021-08-29 14:27 | NUR ---
Pt. is laying on his left side sleeping at this time, rr are even and unlabored.
--- NOTE | 2021-08-29 16:30 | NUR ---
Pt. up to use the BR at this time, he returns back to bed and to sleep. No s/s of distress noted.
--- NOTE | 2021-08-29 17:57 | NUR ---
Pt. continues to sleep in bed at this time, no s/s of distress noted.
--- NOTE | 2021-08-29 19:47 | NUR ---
Pt sleeping irritable when awakened, went right back to sleep. Dinner tray provided, tray sitting at bedside untouched.
[2021-08-29] MEDS: OLANZapine 5mg rapidly disint. tablet PO SCH (20:55)
--- NOTE | 2021-08-29 21:07 | NUR ---
Pt woke up suddenly threw dinner tray on floor. Yelling nonsensical. Order for Zyprexa 5mg obtained and given pt behavior continued. Security called. Unclear if pt would agree to more oral medication. Laying queitly in bed at this time Security left.
--- NOTE | 2021-08-29 23:07 | NUR ---
Pt started yelling out "I'm going to kill myself" in response to another pts's loud disruptive behavior. Pt moved to bed 26 away from disruptive pt. He appears to be sleeping at this time.
--- NOTE | 2021-08-30 01:45 | NUR ---
Pt sleeping since moved to new bed.
[2021-08-30] MEDS: ondansetron 4mg rapidly disintigrating tab PO PRN ×2 (02:52→10:10)
--- NOTE | 2021-08-30 03:01 | NUR ---
Pt woke suddenly repeated large amount of liquid emesis. Given Zofran with good result sleeping at this time.
--- NOTE | 2021-08-30 06:04 | NUR ---
Awakened for VS coopeartive back to sleep.
--- NOTE | 2021-08-30 07:01 | NUR ---
pt sleeping quietly
[2021-08-30] MEDS: methadone 10mg tablet PO SCH (08:00)
--- NOTE | 2021-08-30 10:12 | NUR ---
PT AWAKE. MEDICATION GIVEN, PT COOPERATIVE. C/O NAUSEA ZOFRAN GIVEN
--- NOTE | 2021-08-30 13:57 | NUR ---
pt having loud outburst, yelling obsinities.. security called. will inform magui
--- NOTE | 2021-08-30 14:01 | NUR ---
spoke with dr. zimmer, please see new orders.
[2021-08-30] MEDS: olanzapine 10mg tablet PO SCH (14:14)
--- NOTE | 2021-08-30 14:45 | NUR ---
zyprexa effective, able to redirect pt.
--- NOTE | 2021-08-30 15:00 | NUR ---
pt sleeping quietly
--- NOTE | 2021-08-30 16:30 | NUR ---
[facility] called regarding, mar, ua, and nurses notes. jerry gomez may accept pt.
--- NOTE | 2021-08-30 17:24 | NUR ---
BREAK RN: PT THROWS DINNER TRAY ALL OVER BED AND IS YELLING "IM VEGAN AND IM MENTALLY ILL." SHEETS CHANGED, KITCHEN CALLED, NEW TRAY WILL COME.
--- NOTE | 2021-08-30 17:27 | NUR ---
PTS TEMP IS 99.8, TAN DOOLEY. NEW ORDERS UA, CXR
[2021-08-30 17:41] LABS: CLARITY,URINE SLIGHTLY CLOUDY (Clear); GLUCOSE, URINE NEGATIVE (Neg); KETONES,URINE TRACE mg/dl (Neg); LEUKOCYTE ESTERASE ,URINE SMALL (Neg); NITRITES, URINE NEGATIVE (Neg); OCCULT BLOOD,URINE LARGE (Neg); PROTEIN,URINE 30 mg/dl (Neg)
[2021-08-30 17:44] LABS: COLOR,URINE AMBER (Yellow); UA COLLECTION TYPE CLN CATCH MIDSTREAM
[2021-08-30 17:46] LABS: BACTERIA,URINE FEW /HPF (Neg); MUCUS STRANDS FEW /LPF (Neg); SQUAMOUS EPITHELIAL CELL,UR MANY /LPF (FEW)
--- NOTE | 2021-08-30 18:49 | NUR ---
Patient is sleeping in a low fowlers position. No distress. In view from the nurses station.
[2021-08-30] MEDS: OLANZapine 5mg rapidly disint. tablet PO SCH (20:56)
--- NOTE | 2021-08-30 20:56 | NUR ---
Patient awakens to voice. He complies with taking his HS Zyprexa. Patient tells this senior mortgage underwriter that he is anxious because it it is filled with thoughts about Rashawn Harpreet and other killers. Patient denies H/I, he denies audible or visual hallucinations.
--- NOTE | 2021-08-30 22:07 | NUR ---
Patient sleeping quietly in bed. No distress noted.
--- NOTE | 2021-08-30 23:23 | NUR ---
Patient is sleeping quietly. No distress. He has self re-positioned in bed.
--- NOTE | 2021-08-31 02:00 | NUR ---
Patient continues to sleep in a supine position. No distress.
--- NOTE | 2021-08-31 03:03 | NUR ---
Patient is sleeping quietly in a supine position. In view from the nurses station.
[2021-08-31 04:42] VITALS: BP 127/79
--- NOTE | 2021-08-31 06:30 | NUR ---
PATIENT RECEIVED SLEEPING IN BED THIS MORNING. RESPIRATIONS EVEN, UNLABORED. NO S/S OF DISTRESS. WILL CONTINUE TO MONITOR.
[2021-08-31] MEDS ORDERED: BUSP5TAB3 PO (07:44)
[2021-08-31] MEDS ORDERED: ARIP882S IM (07:44)
--- NOTE | 2021-08-31 08:35 | NUR ---
WHILE REVIEWING MED [facility] WT PATIENT, HE ENDORSED TO THIS DENTAL LABORATORY MANAGER THAT HE "BETTER GET HIS HORMONE MEDICATION BEFORE HE FMINI MURDERS SOMEBODY". PATIEND OBSERVED SITTING ON HIS BED AT THIS TIME EATING BREAKFAST. WILL CONTINUE TO MONITOR.
[2021-08-31] MEDS: olanzapine 10mg tablet PO SCH (08:46)
[2021-08-31] MEDS: methadone 10mg tablet PO SCH (08:46)
[2021-08-31] MEDS ORDERED: magnesium hydroxide 30ml (MOM) UD suspension PO ONE (10:10)
--- NOTE | 2021-08-31 10:30 | NUR ---
PATIENT RECEIVED PRN MILK OF MAGNESIA FOR ? CONSTIPATION. PATIENT UNABLE TO VERBALIZE DATE OF LBM. BOWEL SOUNDS ACTIVE X4. HE IS NOTED SITTING QUIETLY IN BED AT THIS TIME. NO S/S OF DISTRESS. WILL CONTINUE TO MONITOR.
--- NOTE | 2021-08-31 12:01 | NUR ---
PATIENT IS BEING EVALUATED BY [facility] AT THIS TIME.
--- NOTE | 2021-08-31 12:30 | NUR ---
PATIENT CONTINUES SLEEPING SUPINE IN BED AT THIS TIME. NO S/S OF DISTRESS NOTED. WILL CONTINUE TO MONITOR.
--- NOTE | 2021-08-31 13:11 | NUR ---
PATIENT NOTED SCREAMING AT STAFF AFTER GIVEN LUNCH TRAY. 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 PATIENT NOTED SCREAMING, YOURE GOING TO MAKE ME INTO A SERIAL KILLER! I CANT EAT THIS SHIT!. STAFF INTERVENED AND DEESCALATED PATIENT. NEW ORDER PLACED FOR VEGETARIAN DIET. WILL CONTINUE TO MONITOR.
[2021-08-31] MEDS ORDERED: methadone 10mg tablet PO ONE (13:50)
== END 2021-08-31 14:25 | disposition home or self-care (01) ==
LOC: EDSEX → ER 20:58
DX: R45.851 Suicidal ideations (principal); Z20.822 Contact with and (suspected) exposure to COVID-19; F11.23 Opioid dependence with withdrawal; F15.10 Other stimulant abuse, uncomplicated; K21.9 Gastro-esophageal reflux disease without esophagitis; I10 Essential (primary) hypertension; F41.9 Anxiety disorder, unspecified; F32.9 Major depressive disorder, single episode, unspecified; F19.90 Other psychoactive substance use, unspecified, uncomplicated; Z98.890 Other specified postprocedural states
CPT/HCPCS: 36415; 80053; 80305; 80320; 81001; 85025; 87635; 99285; C9803

== ENCOUNTER 2021-09-01 16:09 | Emergency (ER) | payer MEDICAID ==
[~2021-09-01] VITALS: Ht 175.3 cm; Wt 81.8 kg
[~2021-09-01 16:09] MED LIST changes: +ARIP882S IM; +BUSP5TAB3 PO
[2021-09-01] MEDS ORDERED: normal saline 1000ml 1,000 ML IV ONE ×3 (17:00→23:30)
[2021-09-01] MEDS ORDERED: ondansetron/PF 4mg/2ml inj IV ONE (17:00)
[2021-09-01 17:41] LABS: BASOPHILS % (AUTO) 0.1 % (0-1); EOSINOPHILS % (AUTO) 0.2 % (0-6); RED CELL DISTRIBUTION WIDTH 14.5 % (11.5-14.5)
[2021-09-01 17:43] LABS: HEMATOCRIT 42.4 % (35.0-45.0); HEMOGLOBIN 14.3 g/dl (12.0-16.0); LYMPHOCYTES # (AUTO) 0.1 X10'3 (1.1-4.8); LYMPHOCYTES % (AUTO) 2.5 % (21-51); MEAN CORPUSCULAR HEMOGLOBIN 30.5 PG (27.0-31.0); MEAN CORPUSCULAR HGB CONC 33.7 g/dL (33.0-36.5); MEAN CORPUSCULAR VOLUME 90.6 FL (78-98); MEAN PLATELET VOLUME 8.2 FL (7.4-10.4); MONOCYTES # (AUTO) 0.1 X10'3 (0-0.9); MONOCYTES % (AUTO) 0.9 % (2-12); NEUTROPHILS # (AUTO) 5.7 X10'3 (1.8-7.7); NEUTROPHILS % (AUTO) 96.3 % (42-75); PLATELET COUNT 280 X10'3 (140-440); RED BLOOD COUNT 4.68 X10'6 (4.20-5.60); WHITE BLOOD COUNT 5.9 X10'3 (4.5-11.0)
[2021-09-01 17:51] LABS: ALANINE AMINOTRANSFERASE 124 U/L (12-78); ALBUMIN 3.5 G/DL (3.4-5.0); ALKALINE PHOSPHATASE 130 IU/L (46-116); ANION GAP 12 (8-16); ASPARTATE AMINO TRANSFERASE 286 U/L (10-37); BILIRUBIN,TOTAL 0.8 MG/DL (0.1-1.0); BLOOD UREA NITROGEN 17 MG/DL (7-18); BUN/CREATININE RATIO 12.4 (6.6-38.0); CALCIUM 8.6 MG/DL (8.5-10.1); CHLORIDE 100 MMOL/L (99-107); CREATININE 1.37 MG/DL (0.40-0.90); GLUCOSE 116 MG/DL (70-104); LIPASE < 50 U/L (73-393); POTASSIUM 3.9 MMOL/L (3.5-5.1); SODIUM 139 MMOL/L (135-145); TOTAL CARBON DIOXIDE 27.4 MMOL/L (24-32); eGFR 47 ML/MIN
[2021-09-01 18:10] LABS: TOTAL CELLS COUNTED 100
[2021-09-01 18:11] LABS: BANDS% (MANUAL) 29 % (0-10); LYMPHOCYTES % (MANUAL) 4 % (21-51); METAMYLEOCYTES% (MANUAL) 1 % (0-0); NEUTROPHILS % (MANUAL) 66 % (42-75); PLATELET ESTIMATE NORMAL
[2021-09-01 18:13] LABS: TOXIC GRANULATION 1+; TOXIC VACUOLATION 2+
[2021-09-01 18:19] LABS: HCG SERUM QL NEGATIVE
--- NOTE | 2021-09-01 19:35 | NUR ---
SPOKE TO DR KEY CONCERNING QUESTION OF PT USING RECREATIONAL DRUGS DURING HIS STAY. PT IS NODDING OFF ASLEEP EASILY AND DESATTING TO 88% WHILE SLEEPING. PLACED PT ON NC RUNNING AT 2 LPM. PT HAS BEEN CHANGED INTO A GOWN AND SECURITY WENT THROUGH PT'S BELONGINGS. NEEDLES WERE FOUND AMONG PT'S POSSESSIONS. DR KEY IS AWARE. WILL CONTINUE TO MONITOR PT.
--- NOTE | 2021-09-02 00:37 | NUR ---
Patient alert and up to bathroom with escort.
--- NOTE | 2021-09-02 00:43 | NUR ---
Patient back from bathroom and laying comfortably on gurney.
[2021-09-02] MEDS ORDERED: normal saline 1000ml 1,000 ML IV ONE (05:35)
[2021-09-02] MEDS ORDERED: metoclopramide 10mg tablet PO ONE (06:00)
[2021-09-02] MEDS ORDERED: ketorolac trometh inj. 60 MG/2 ML VIAL IM ONE (06:05)
[2021-09-02 06:37] VITALS: BP 99/63
== END 2021-09-02 06:39 | disposition home or self-care (01) ==
LOC: ER 16:10 → EDSEX 16:10 → ER 09-02 06:39
DX: R11.2 Nausea with vomiting, unspecified (principal); Z20.822 Contact with and (suspected) exposure to COVID-19; R05.9 Cough, unspecified; R19.7 Diarrhea, unspecified; E87.6 Hypokalemia; I10 Essential (primary) hypertension; K21.9 Gastro-esophageal reflux disease without esophagitis; Z79.899 Other long term (current) drug therapy
CPT/HCPCS: 36415; 80053; 83690; 84703; 85007; 85025; 87635; 93005; 96361; 96372; 96374; 99285; C9803; J1885; J2405; J7030

== ENCOUNTER 2022-01-24 13:54 | Emergency (ER) | payer MEDICAID ==
[~2022-01-24] VITALS: Ht 175.3 cm; Wt 73.4 kg
[~2022-01-24 13:54] MED LIST changes: -ARIP882S IM; +ARIP882S2 IM
[2022-01-24] MEDS ORDERED: LIDOcaine Viscous 15ml cup MM ONE (16:05)
[2022-01-24] MEDS ORDERED: ondansetron 4mg rapidly disintigrating tab PO ONE (16:05)
[2022-01-24] MEDS ORDERED: mag hydrox/Alum hydrox/simeth 30ml oral suspension PO ONE (16:05)
[2022-01-24] MEDS ORDERED: pantoprazole 40mg Tablet.DR PO SCH (16:05)
[2022-01-24] MEDS ORDERED: PANT-47 PO (16:07)
[2022-01-24] MEDS ORDERED: ONDA4TAB12 PO (16:07)
[2022-01-24 16:31] VITALS: BP 122/80
== END 2022-01-24 16:32 | disposition home or self-care (01) ==
LOC: ER 13:55
DX: R10.13 Epigastric pain (principal); T38.7X5A Adverse effect of androgens and anabolic congeners, initial encounter; R11.2 Nausea with vomiting, unspecified; I10 Essential (primary) hypertension; K21.9 Gastro-esophageal reflux disease without esophagitis; F41.9 Anxiety disorder, unspecified; F32.A Depression, unspecified; Z98.890 Other specified postprocedural states; Z72.89 Other problems related to lifestyle; Z79.899 Other long term (current) drug therapy; Y92.89 Other specified places as the place of occurrence of the external cause
CPT/HCPCS: 99284

== ENCOUNTER 2022-02-01 13:42 | Emergency (ER) | payer MEDICAID ==
[~2022-02-01] VITALS: Ht 175.3 cm; Wt 72.7 kg
[~2022-02-01 13:42] MED LIST changes: +ONDA4TAB12 PO; +PANT-47 PO
[2022-02-01 13:45] VITALS: BP 146/91
[2022-02-01 14:23] LABS: CLARITY,URINE CLEAR (Clear); COLOR,URINE YELLOW (Yellow); GLUCOSE, URINE NEGATIVE (Neg); KETONES,URINE TRACE mg/dl (Neg); LEUKOCYTE ESTERASE ,URINE NEGATIVE (Neg); NITRITES, URINE NEGATIVE (Neg); OCCULT BLOOD,URINE MODERATE (Neg); PROTEIN,URINE NEGATIVE (Neg); UROBILINOGEN,URINE 0.2 E.U/dL (0.2-1.0)
[2022-02-01 14:25] LABS: URINE HCG NEGATIVE (NEG)
[2022-02-01 14:31] LABS: UA COLLECTION TYPE NON-SPECIFIED
[2022-02-01 14:34] LABS: SQUAMOUS EPITHELIAL CELL,UR MODERATE /LPF (FEW)
[2022-02-01] MEDS ORDERED: DOXYCYCLINE 100MG CAPSULE PO STA (14:34)
[2022-02-01] MEDS ORDERED: CEFTRIAXONE 500 MG VIAL IM ONE (14:35)
[2022-02-01] MEDS ORDERED: DOXY-135 PO (14:35)
[2022-02-01 14:36] LABS: WBC,URINE 30-50 /HPF (0-4)
[2022-02-01 14:37] LABS: BACTERIA,URINE FEW /HPF (Neg)
[2022-02-01] MEDS ORDERED: CefTRIAXone 500MG IM Kit w/LIDOcaine IM ONE (14:45)
[2022-02-01] MEDS ORDERED: DOXY-11 PO (14:58)
== END 2022-02-01 15:03 | disposition home or self-care (01) ==
LOC: ER 13:42
DX: A64 Unspecified sexually transmitted disease (principal); I10 Essential (primary) hypertension; K21.9 Gastro-esophageal reflux disease without esophagitis; F32.9 Major depressive disorder, single episode, unspecified; F41.9 Anxiety disorder, unspecified; Z98.890 Other specified postprocedural states; Z79.899 Other long term (current) drug therapy
CPT/HCPCS: 81001; 81025; 96372; 99283; J0696

== ENCOUNTER 2022-02-09 14:55 | Emergency (ER) | payer MEDICAID ==
[~2022-02-09] VITALS: Ht 175.3 cm; Wt 75.0 kg
[~2022-02-09 14:55] MED LIST changes: +DOXY-11 PO; +DOXY-135 PO
[2022-02-09 15:41] VITALS: BP 146/89
== END 2022-02-09 18:48 | disposition left against medical advice (07) ==
LOC: ER 14:56
DX: F29 Unspecified psychosis not due to a substance or known physiological condition (principal); Z53.21 Procedure and treatment not carried out due to patient leaving prior to being seen by health care provider

== ENCOUNTER 2022-02-16 13:51 | Emergency (ER) | payer MEDICAID ==
[~2022-02-16] VITALS: Ht 175.3 cm; Wt 75.0 kg
[~2022-02-16 13:51] MED LIST changes: -DOXY-11 PO; -DOXY-135 PO
[2022-02-16 14:00] VITALS: BP 132/84
[2022-02-16] MEDS ORDERED: MICO90PO TOP (15:01)
[2022-02-17] MEDS ORDERED: DOXY100C76 PO (10:47)
== END 2022-02-16 15:19 | disposition home or self-care (01) ==
LOC: ER 13:51
DX: B35.3 Tinea pedis (principal); I10 Essential (primary) hypertension; K21.9 Gastro-esophageal reflux disease without esophagitis; Z79.899 Other long term (current) drug therapy; Z59.00 Homelessness unspecified
CPT/HCPCS: 99282

== ENCOUNTER 2022-02-17 09:23 | Emergency (ER) | payer MEDICAID ==
[~2022-02-17] VITALS: Ht 175.3 cm; Wt 75.0 kg
[~2022-02-17 09:23] MED LIST changes: +MICO90PO TOP
[2022-02-17 09:25] VITALS: BP 151/82
[2022-02-17] MEDS ORDERED: DOXYCYCLINE 100MG CAPSULE PO STA (10:36)
[2022-02-17] MEDS ORDERED: DOXY100C76 PO (10:47)
== END 2022-02-17 10:58 | disposition home or self-care (01) ==
LOC: ER 09:24
DX: L03.115 Cellulitis of right lower limb (principal); M79.672 Pain in left foot; I10 Essential (primary) hypertension; K21.9 Gastro-esophageal reflux disease without esophagitis; Z59.00 Homelessness unspecified; Z79.899 Other long term (current) drug therapy
CPT/HCPCS: 99283

== ENCOUNTER 2022-02-26 09:03 | Emergency (ER) | payer MEDICAID ==
[~2022-02-26] VITALS: Ht 175.3 cm; Wt 71.0 kg
[2022-02-26 09:24] VITALS: BP 138/84
== END 2022-02-26 10:45 | disposition left against medical advice (07) ==
LOC: ER 09:04
DX: J06.9 Acute upper respiratory infection, unspecified (principal); I10 Essential (primary) hypertension; K21.9 Gastro-esophageal reflux disease without esophagitis; F41.9 Anxiety disorder, unspecified; F32.9 Major depressive disorder, single episode, unspecified; Z56.0 Unemployment, unspecified; Z59.00 Homelessness unspecified; F11.10 Opioid abuse, uncomplicated; Z98.890 Other specified postprocedural states; Z79.899 Other long term (current) drug therapy
CPT/HCPCS: 99281

== ENCOUNTER 2022-03-03 09:06 | Emergency (ER) | payer MEDICAID ==
[~2022-03-03] VITALS: Ht 175.3 cm; Wt 68.2 kg
[2022-03-03 09:13] VITALS: BP 140/45
[2022-03-03] MEDS ORDERED: SULF1TAB45 PO (09:32)
== END 2022-03-03 10:06 | disposition home or self-care (01) ==
LOC: ER 09:06
DX: L08.9 Local infection of the skin and subcutaneous tissue, unspecified (principal); I10 Essential (primary) hypertension; K21.9 Gastro-esophageal reflux disease without esophagitis; F11.10 Opioid abuse, uncomplicated; Z59.00 Homelessness unspecified; Z56.0 Unemployment, unspecified
CPT/HCPCS: 99283

== ENCOUNTER 2022-04-06 17:45 | Emergency (ER) | payer MEDICAID ==
[~2022-04-06] VITALS: Ht 175.3 cm; Wt 72.7 kg
[2022-04-06 18:35] VITALS: BP 136/74
[2022-04-06] MEDS ORDERED: olanzapine 10mg tablet PO SCH (20:00)
[2022-04-06] MEDS ORDERED: olanzapine 10mg tablet PO ONE (20:02)
[2022-04-06] MEDS ORDERED: olanzapine 10mg tablet PO PRN (20:02)
--- NOTE | 2022-04-06 20:21 | NUR ---
patient began yelling at RN during discharge instruction
[2022-04-07] MEDS ORDERED: olanzapine 10mg tablet PO SCH (08:00)
== END 2022-04-06 20:25 | disposition home or self-care (01) ==
LOC: ER 17:46
DX: F41.9 Anxiety disorder, unspecified (principal); I10 Essential (primary) hypertension; K21.9 Gastro-esophageal reflux disease without esophagitis; Z59.00 Homelessness unspecified; Z56.0 Unemployment, unspecified
CPT/HCPCS: 99283

== ENCOUNTER 2022-05-01 08:37 | Emergency (ER) | payer MEDICAID ==
[~2022-05-01] VITALS: Ht 175.3 cm; Wt 63.0 kg
[2022-05-01 08:39] VITALS: BP 129/72
== END 2022-05-01 12:00 | disposition left against medical advice (07) ==
LOC: ER 08:38
DX: R10.30 Lower abdominal pain, unspecified (principal); Z53.21 Procedure and treatment not carried out due to patient leaving prior to being seen by health care provider

== ENCOUNTER 2022-09-10 03:33 | Emergency (ER) | payer MEDICAID | END 2022-09-10 03:59 | disposition left against medical advice (07) | LOC: ER 03:34 | DX: Z00.00 Encounter for general adult medical examination without abnormal findings (principal); Z53.21 Procedure and treatment not carried out due to patient leaving prior to being seen by health care provider ==

== ENCOUNTER 2022-09-24 00:19 | Emergency (ER) | payer MEDICAID ==
[~2022-09-24] VITALS: Ht 175.3 cm; Wt 56.8 kg
[2022-09-24 00:22] VITALS: BP 159/84
--- NOTE | 2022-09-24 00:27 | NUR ---
pt is alert and oriented at this time, although seems to have some halucinations. Pt states he does use meth- last use was yesterday per pt. VSS at this time. Pt denies SI/HI
--- NOTE | 2022-09-24 00:29 | NUR ---
pt carrying on conversation with self at this time
== END 2022-09-24 02:30 | disposition left against medical advice (07) ==
LOC: EDSEX 00:19 → ER 00:19
DX: F15.10 Other stimulant abuse, uncomplicated (principal); R45.851 Suicidal ideations; I10 Essential (primary) hypertension; K21.9 Gastro-esophageal reflux disease without esophagitis; F41.9 Anxiety disorder, unspecified; F32.9 Major depressive disorder, single episode, unspecified; F17.200 Nicotine dependence, unspecified, uncomplicated; Z56.0 Unemployment, unspecified; Z59.00 Homelessness unspecified; Z79.899 Other long term (current) drug therapy
CPT/HCPCS: 99284

== ENCOUNTER 2022-11-26 11:22 | Emergency (ER) | payer MEDICAID ==
[~2022-11-26] VITALS: Ht 175.3 cm; Wt 63.6 kg
[~2022-11-26 11:22] MED LIST changes: -ARIP882S2 IM; -BUSP5TAB3 PO; -MICO90PO TOP; +NO HOME MEDS; -ONDA4TAB12 PO; -PANT-47 PO; -TEST200V33
[2022-11-26 13:12] LABS: ALANINE AMINOTRANSFERASE 34 U/L (12-78); ALBUMIN 3.5 G/DL (3.4-5.0); ALKALINE PHOSPHATASE 120 IU/L (46-116); ANION GAP 9 (8-16); ASPARTATE AMINO TRANSFERASE 35 U/L (10-37); BILIRUBIN,TOTAL 0.2 MG/DL (0.1-1.0); BLOOD UREA NITROGEN 17 MG/DL (7-18); BUN/CREATININE RATIO 16.7 (10.0-20.0); CALCIUM 8.9 MG/DL (8.5-10.1); CHLORIDE 105 MMOL/L (99-107); CREATININE 1.02 MG/DL (0.60-1.10); GLUCOSE 207 MG/DL (70-104); SODIUM 143 MMOL/L (135-145); TOTAL CARBON DIOXIDE 28.8 MMOL/L (24-32); eGFR 88 ML/MIN
[2022-11-26 13:14] LABS: ETHANOL < 0.010 GM/DL (0.0-0.010)
[2022-11-26 13:18] LABS: ACETAMINOPHEN < 2.0 UG/ML (10-30)
[2022-11-26] MEDS ORDERED: NALO4SPR BOTHNARES (13:40)
[2022-11-26 14:13] VITALS: BP 112/54
== END 2022-11-26 14:15 | disposition home or self-care (01) ==
LOC: ER 11:23
DX: T40.411A Poisoning by fentanyl or fentanyl analogs, accidental (unintentional), initial encounter (principal); Y92.89 Other specified places as the place of occurrence of the external cause; I10 Essential (primary) hypertension; K21.9 Gastro-esophageal reflux disease without esophagitis; F31.9 Bipolar disorder, unspecified; F15.10 Other stimulant abuse, uncomplicated; Z59.00 Homelessness unspecified; Z56.0 Unemployment, unspecified
CPT/HCPCS: 36415; 80053; 80320; 80329; 93005; 99284